=== PATIENT | female | born 1965 | race Hispanic/Latino ===

== ENCOUNTER 2016-05-12 15:32 | Emergency (ER) | payer OTHER ==
[2016-05-12 17:57] LABS: Alanine Aminotransferase 216 units/L (7-56); Albumin 3.9 g/dL (3.9-5); Albumin/Globulin Ratio 1.2 %; Alkaline Phosphatase 101 units/L (35-129); Anion Gap 17 mmol/L; Bilirubin,Total 0.6 mg/dL (0.1-1.2); Blood Urea Nitrogen 14 mg/dL (7-17); Carbon Dioxide 28 mmol/L (22-30); Chloride 101.8 mmol/L (98-107); Glucose 82 mg/dL (65-100); Hemoglobin 14.1 gm/dl (10.1-14.3); Lipase 109 units/L (13-60); Mean Corpuscular HGB Conc 33 % (30-34); Mean Corpuscular Hemoglobin 29 pg (28-32); Mean Corpuscular Volume 88 fl (79-97); Platelet Count 111 K/mm3 (140-440); Potassium 4.1 mmol/L (3.6-5.0); Sodium 143 mmol/L (137-145); Total Protein 7.1 g/dL (6.3-8.2); White Blood Count 5.4 K/mm3 (4.5-11.0)
[2016-05-12 19:11] LABS: Bilirubin,Urine NEG (Negative); Blood,Urine NEG (Negative); Ketones,Urine NEG (Negative); Leukocyte Esterase,Urine NEG (Negative); Mucus,Urine FEW /HPF; Nitrite,Urine NEG (Negative); Protein,Urine <15 mg/dL mg/dL (Negative)
[2016-05-12 19:55] LABS: Blastocytes % (Manual) 0 %
[2016-05-12 19:56] LABS: Anisocytosis 1+; Diff Status Complete; Platelet Estimate Consistent w Auto
[2016-05-12] MEDS ORDERED: NACL 0.9% 500 ML 500 ML ONE (23:25)
[2016-05-12] MEDS ORDERED: NACL 0.9% 500 ML 500 ML IV ONE (23:27)
[2016-05-12] MEDS ORDERED: MORPHINE IV PRN (23:38)
[2016-05-12] MEDS ORDERED: ZOFRAN IV PRN (23:38)
--- NOTE | 2016-05-12 23:44 | Emergency Department Report ---
HPI - General Chief Complaint: Abdominal Pain Time Seen by Provider: 05/12/16 23:25 - HPI HPI: Room 22 The patient is a 50-year-old female presenting with a chief complaint of abdominal pain. The patient states her symptoms began approximately 7 days ago with a "nagging" pain in the right lower quadrant. The patient states over the past 5 days pain has worsened. The patient states it is a dull constant pain that waxes and wanes. Patient denies nausea vomiting or diarrhea. Patient denies fever, dysuria or hematuria. The patient gives her pain a score of 10/ 10. Location: Right lower quadrant Duration: 7 days Quality: Dull Severity: 10/10 Modifying factors: Unknown Context: [see above] Mode of transportation: Patient drove herself to the emergency department and her only other visitor present is a child. The patient states she is calling an adult to come to the ED to drive her and the child home ED Past Medical Hx - Past Medical History Previous Medical History?: Yes Hx Arthritis: Yes Hx Asthma: Yes - Surgical History Past Surgical History?: Yes Hx Cholecystectomy: Yes Additional Surgical History: C-sections x2 - Family History Family history: no significant - Social History Smoking Status: Former Smoker (none 5 years) Substance Use Type: None (denies illicit drug use), Alcohol (none 10 years) - Medications Home Medications: Home Medications Medication Instructions Recorded Confirmed Last Taken Type traMADol [Ultram] 50 mg PO Q6HR PRN #10 tablet 05/13/16 Unknown Rx ED Review of Systems ROS: Stated complaint: RT SIDE PAIN Other details as noted in HPI Comment: All other systems reviewed and negative Constitutional: no symptoms reported Eyes: denies: eye pain, eye discharge, vision change ENT: denies: ear pain, throat pain Respiratory: denies: cough, shortness of breath, wheezing Cardiovascular: denies: chest pain, palpitations Endocrine: no symptoms reported Gastrointestinal: abdominal pain. denies: nausea, diarrhea Genitourinary: denies: urgency, dysuria, discharge Musculoskeletal: denies: back pain, joint swelling, arthralgia Skin: denies: rash, lesions Neurological: denies: headache, weakness, paresthesias Psychiatric: denies: anxiety, depression Hematological/Lymphatic: denies: easy bleeding, easy bruising Physical Exam - Physical Exam Vital Signs: Vital Signs 05/12/16 05/12/16 05/12/16 16:40 23:09 23:38 Temperature 98.2 F 97.6 F Pulse Rate 92 H 71 Respiratory 20 16 18 Rate Blood Pressure 138/91 Blood Pressure 122/70 [Left] O2 Sat by Pulse 97 97 Oximetry Physical Exam: GENERAL: The patient is well-developed well-nourished female lying on stretcher not appearing to be in acute distress. [] HEENT: Normocephalic. Atraumatic. Strabismus. Patient has moist mucous membranes. NECK: Supple. No meningitic signs are noted. There is no adenopathy noted. CHEST/LUNGS: Clear to auscultation. There is no respiratory distress noted. HEART/CARDIOVASCULAR: Regular. There is no tachycardia. There is no gallop rub or murmur. ABDOMEN: Abdomen is soft, with mild discomfort to palpation in the right lower quadrant. There is no tenderness to palpation in the epigastric or right upper quadrant. Patient has normal bowel sounds. There is no abdominal distention. SKIN: There is no rash. There is no edema. There is no diaphoresis. NEURO: The patient is awake, alert, and oriented. The patient is cooperative. The patient has normal speech MUSCULOSKELETAL: There is no CVA tenderness. There is no evidence of acute injury. ED Course Vital Signs 05/12/16 05/12/16 05/12/16 16:40 23:09 23:38 Temperature 98.2 F 97.6 F Pulse Rate 92 H 71 Respiratory 20 16 18 Rate Blood Pressure 138/91 Blood Pressure 122/70 [Left] O2 Sat by Pulse 97 97 Oximetry ED Medical Decision Making - Lab Data Result diagrams: 05/12/16 17:23 05/12/16 17:23 Laboratory Tests 05/12/16 05/12/16 05/12/16 17:23 17:23 18:29 WBC 5.4 RBC 4.90 Hgb 14.1 Hct 43.0 H MCV 88 MCH 29 MCHC 33 RDW 14.0 Plt Count 111 L Add Manual Diff Complete Total Counted 100 Seg Neutrophils % Cra Seg Neuts % (Manual) 35.0 L Band Neutrophils % 0 Lymphocytes % (Manual) 52.0 H Reactive Lymphs % (Man) 0 Monocytes % (Manual) 10.0 H Eosinophils % (Manual) 2.0 Basophils % (Manual) 1.0 Metamyelocytes % 0 Myelocytes % 0 Promyelocytes % 0 Blast Cells % 0 Nucleated RBC % Not Reportable Seg Neutrophils # Man 1.9 Band Neutrophils # 0.0 Lymphocytes # (Manual) 2.8 Abs React Lymphs (Man) 0.0 Monocytes # (Manual) 0.5 Eosinophils # (Manual) 0.1 Basophils # (Manual) 0.1 Metamyelocytes # 0.0 Myelocytes # 0.0 Promyelocytes # 0.0 Blast Cells # 0.0 WBC Morphology Not Reportable Hypersegmented Neuts Not Reportable Hyposegmented Neuts Not Reportable Hypogranular Neuts Not Reportable Smudge Cells Not Reportable Toxic Granulation Not Reportable Toxic Vacuolation Not Reportable Dohle Bodies Not Reportable Pelger-Huet Anomaly Not Reportable Jaimie Rods Not Reportable Platelet Estimate Consistent w auto Clumped Platelets Not Reportable Plt Clumps, EDTA Not Reportable Large Platelets Not Reportable Giant Platelets Not Reportable Platelet Satelliting Not Reportable Plt Morphology Comment Not Reportable RBC Morphology Not Reportable Dimorphic RBCs Not Reportable Polychromasia Not Reportable Hypochromasia Not Reportable Poikilocytosis Not Reportable Anisocytosis 1+ Microcytosis Not Reportable Macrocytosis Not Reportable Spherocytes Not Reportable Pappenheimer Bodies Not Reportable Sickle Cells Not Reportable Target Cells Not Reportable Tear Drop Cells Not Reportable Ovalocytes Not Reportable Helmet Cells Not Reportable [place] Bodies Not Reportable [place] Rings Not Reportable [place] Cells Not Reportable Bite Cells Not Reportable Crenated Cell Not Reportable Elliptocytes Not Reportable Acanthocytes (Spur) Not Reportable Rouleaux Not Reportable Hemoglobin C Crystals Not Reportable Schistocytes Not Reportable Malaria parasites Not Reportable Ted Bodies Not Reportable Hem Pathologist Commnt No Sodium 143 Potassium 4.1 Chloride 101.8 Carbon Dioxide 28 Anion Gap 17 BUN 14 Creatinine 0.8 Estimated GFR > 60 BUN/Creatinine Ratio 17.50 Glucose 82 Calcium 9.0 Total Bilirubin 0.6 AST 248 H ALT 216 H Alkaline Phosphatase 101 Total Protein 7.1 Albumin 3.9 Albumin/Globulin Ratio 1.2 Lipase 109 H Urine Color Yellow Urine Turbidity Clear Urine pH 6.0 Ur Specific [place] 1.021 Urine Protein <15 mg/dl Urine Glucose (UA) Neg Urine Ketones Neg Urine Blood Neg Urine Nitrite Neg Urine Bilirubin Neg Urine Urobilinogen 2.0 Ur Leukocyte Esterase Neg Urine WBC (Auto) 2.0 Urine RBC (Auto) 4.0 U Epithel Cells (Auto) 1.0 Hyaline Casts 1 Urine Mucus Few - Radiology Data Radiology results: report reviewed (CT abdomen and pelvis), image reviewed (CT abdomen and pelvis) CT abdomen and pelvis (read by radiologist)-appendix within normal limits. No significant free peritoneal fluid or apparent adenopathy. Abdominal aorta non- aneurysmal. Findings compatible with fatty infiltration of the liver. Findings suggestive of constipation. - Differential Diagnosis appendicitis, renal colic, ovarian cyst Critical care attestation.: If time is entered above; I have spent that time in minutes in the direct care of this critically ill patient, excluding procedure time. ED Disposition Clinical Impression: Abdominal pain, Elevated LFTs Disposition: DISCHARGED TO HOME OR SELFCARE Is pt being admited?: No Does the pt Need Aspirin: No Condition: Stable Instructions: Abdominal Pain (ED) Additional Instructions: Return to the emergency department immediately should you develop worsening symptoms, fever, inability to tolerate food or liquid or any other concerns. Prescriptions: traMADol [Ultram] 50 mg PO Q6HR PRN #10 tablet PRN Reason: Pain Referrals: PRIMARY CARE, [Primary Care Provider] - 3-5 Days EMILY ABERNATHY MD [Staff Physician] - 3-5 Days (Dr. Abernathy is a inker. Please follow up with him for further evaluation of your elevated liver function test and abdominal pain) SLIME HUERTAS MD [Staff Physician] - 3-5 Days (Dr. Huertas is a rivet hole puncher. Please follow up with him for further evaluation if you do not already have a rivet hole puncher) Time of Disposition: 03:14
[2016-05-13 02:23] VITALS: BP 126/78
--- NOTE | 2016-05-13 02:51 | Cat Scan Report ---
FINAL REPORT EXAM: CT ABDOMEN PELVIS W CON HISTORY: right lower quadrant abdominal pain TECHNIQUE: Spiral CT scanning of the abdomen and pelvis after the uneventful administration of IV contrast. Multiplanar reformations. 100 mL Omnipaque IV. PRIORS: None. FINDINGS: Abdomen: Visualized lung bases grossly unremarkable. Gallbladder surgically absent, with biliary duct prominence probably postsurgical. Liver shows diffusely decreased attenuation without focal abnormality. Spleen without significant abnormality. Pancreas without significant abnormality. Kidneys without significant abnormality. Probable subcentimeter, left renal cyst. Adrenal glands without significant abnormality. Pelvis: Bowel grossly unremarkable, with moderate-large amount of retained stool. Appendix within normal limits. No significant free peritoneal fluid or apparent adenopathy. Abdominal aorta non-aneurysmal. IMPRESSION: 1. Findings compatible with fatty infiltration in the liver. 2. Findings suggestive of constipation.
== END 2016-05-13 04:34 | disposition home or self-care (01) ==
LOC: ED 15:32
DX: R10.31 Right lower quadrant pain (principal); R94.5 Abnormal results of liver function studies; J45.909 Unspecified asthma, uncomplicated; M19.90 Unspecified osteoarthritis, unspecified site; Z87.891 Personal history of nicotine dependence
CPT/HCPCS: 36415; 74177; 80053; 81001; 83690; 85007; 85025; 96374; 96375; 99284; J2270; J2405; J7040; Q9967

== ENCOUNTER 2016-10-07 01:58 | Emergency (ER) | payer OTHER ==
[2016-10-07 03:18] LABS: Bilirubin,Urine NEG (Negative); Blood,Urine NEG (Negative); Ketones,Urine NEG (Negative); Leukocyte Esterase,Urine NEG (Negative); Nitrite,Urine NEG (Negative); Protein,Urine <15 mg/dL mg/dL (Negative)
[2016-10-07 03:24] LABS: Bacteria,Urine 1+ /HPF (Negative)
[2016-10-07 03:34] LABS: Basophils % (Auto) 0.9 % (0.0-1.8); Hematocrit 43.4 % (30.3-42.9); Hemoglobin 14.8 gm/dl (10.1-14.3); Mean Corpuscular HGB Conc 34 % (30-34); Mean Corpuscular Hemoglobin 32 pg (28-32); Mean Corpuscular Volume 93 fl (79-97); Red Blood Count 4.67 M/mm3 (3.65-5.03); Red Cell Distribution Width 13.3 % (13.2-15.2); White Blood Count 5.1 K/mm3 (4.5-11.0)
[2016-10-07 03:35] LABS: Platelet Count 97 K/mm3 (140-440)
[2016-10-07 03:49] LABS: Alanine Aminotransferase 226 units/L (7-56); Albumin 4.1 g/dL (3.9-5); Albumin/Globulin Ratio 1.3 %; Alkaline Phosphatase 104 units/L (35-129); Anion Gap 12 mmol/L; BUN/Creatinine Ratio 18.57; Blood Urea Nitrogen 13 mg/dL (7-17); Calcium 9.3 mg/dL (8.4-10.2); Carbon Dioxide 31 mmol/L (22-30); Chloride 98.4 mmol/L (98-107); Glucose 120 mg/dL (65-100); Lipase 89 units/L (13-60); Potassium 4.2 mmol/L (3.6-5.0); Sodium 137 mmol/L (137-145); Total Protein 7.3 g/dL (6.3-8.2)
[2016-10-07] MEDS ORDERED: SUBLIMAZE IV ONE (08:50)
[2016-10-07] MEDS ORDERED: ZOFRAN IV ONE (08:50)
--- NOTE | 2016-10-07 08:55 | Emergency Department Report ---
HPI - General Chief Complaint: Abdominal Pain Time Seen by Provider: 10/07/16 08:43 - HPI HPI: Room 6 The patient is a 51-year-old female presenting with a chief complaint of abdominal pain. The patient states proximal was 6 weeks ago and diagnosed with an "inflamed pancreas and liver" and "fatty liver." The patient states for the past 4 days she has had intermittent pain in her right abdomen that has been dull in nature. Patient admits to nausea and vomiting. Patient denies diarrhea or fever. The patient currently gives her pain a score of 10/10. 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 Location: Abdomen Duration: 4 days intermittently Quality: Dull Severity: 10/10 Modifying factors: [see above] Context: [see above] Mode of transportation: [not driving] ED Past Medical Hx - Past Medical History Previous Medical History?: Yes Hx Arthritis: Yes Hx Asthma: Yes Additional medical history: "Fatty liver" - Surgical History Past Surgical History?: Yes Hx Cholecystectomy: Yes Additional Surgical History: C-sections x2 - Family History Family history: no significant - Social History Smoking Status: Former Smoker (none 3 years) Substance Use Type: None (denies illicit drug use) - Medications Home Medications: Home Medications Medication Instructions Recorded Confirmed Last Taken Type traMADol [Ultram] 50 mg PO Q6HR PRN #10 tablet 05/13/16 Unknown Rx Promethazine [Phenergan TAB] 25 mg PO Q6HR PRN #20 tab 10/07/16 Unknown Rx Promethazine [Phenergan] 25 mg [place] Q6HR PRN #5 supp.rect 10/07/16 Unknown Rx traMADol [Ultram] 50 mg PO Q6HR PRN #20 tablet 10/07/16 Unknown Rx ED Review of Systems ROS: Stated complaint: ABDOMINAL AND LOWER BACK PAIN Other details as noted in HPI Comment: All other systems reviewed and negative Constitutional: denies: chills, fever Eyes: denies: eye pain, eye discharge, vision change ENT: denies: ear pain, throat pain Respiratory: denies: cough, shortness of breath, wheezing Cardiovascular: denies: chest pain, palpitations Endocrine: no symptoms reported Gastrointestinal: abdominal pain, nausea, vomiting. denies: diarrhea Genitourinary: denies: urgency, dysuria, discharge Musculoskeletal: denies: back pain, joint swelling, arthralgia Skin: denies: rash, lesions Neurological: denies: headache, weakness, paresthesias Psychiatric: denies: anxiety, depression Hematological/Lymphatic: denies: easy bleeding, easy bruising Physical Exam - Physical Exam Vital Signs: Vital Signs 10/07/16 02:07 Temperature 97.6 F Pulse Rate 98 H Respiratory 18 Rate Blood Pressure 128/94 O2 Sat by Pulse 96 Oximetry Physical Exam: GENERAL: The patient is well-developed well-nourished female sleeping on stretcher not appearing to be in acute distress. [] HEENT: Normocephalic. Atraumatic. Extraocular motions are intact. Patient has moist mucous membranes. NECK: Supple. Trachea midline CHEST/LUNGS: Clear to auscultation. There is no respiratory distress noted. HEART/CARDIOVASCULAR: Regular. There is no tachycardia. There is no gallop rub or murmur. ABDOMEN: Abdomen is soft, with mild discomfort to palpation in the left lower quadrant and border of right upper/right lower quadrant. There is no tenderness to palpation in the right upper quadrant, epigastric or left upper quadrant. Patient has normal bowel sounds. There is no abdominal distention. SKIN: There is no rash. There is no edema. There is no diaphoresis. NEURO: The patient is awake, alert, and oriented. The patient is cooperative. The patient has normal speech MUSCULOSKELETAL: There is no evidence of acute injury. ED Course Vital Signs 10/07/16 02:07 Temperature 97.6 F Pulse Rate 98 H Respiratory 18 Rate Blood Pressure 128/94 O2 Sat by Pulse 96 Oximetry ED Medical Decision Making - Lab Data Result diagrams: 10/07/16 03:01 10/07/16 03:01 Laboratory Tests 10/07/16 10/07/16 10/07/16 02:29 03:01 03:01 WBC 5.1 RBC 4.67 Hgb 14.8 H Hct 43.4 H MCV 93 MCH 32 MCHC 34 RDW 13.3 Plt Count 97 L Lymph % (Auto) 41.7 H [place] % (Auto) 6.8 Eos % (Auto) 1.0 Baso % (Auto) 0.9 Lymph # 2.1 [place] # 0.3 Eos # 0.0 Baso # 0.0 Seg Neutrophils % 49.6 Seg Neutrophils # 2.5 Sodium 137 Potassium 4.2 Chloride 98.4 Carbon Dioxide 31 H Anion Gap 12 BUN 13 Creatinine 0.7 Estimated GFR > 60 BUN/Creatinine Ratio 18.57 Glucose 120 H Calcium 9.3 Total Bilirubin 1.40 H AST 278 H ALT 226 H Alkaline Phosphatase 104 Total Protein 7.3 Albumin 4.1 Albumin/Globulin Ratio 1.3 Lipase 89 H HCG, Qual Urine Color Yellow Urine Turbidity Clear Urine pH 5.0 Ur Specific [place] 1.019 Urine Protein <15 mg/dl Urine Glucose (UA) Neg Urine Ketones Neg Urine Blood Neg Urine Nitrite Neg Urine Bilirubin Neg Urine Urobilinogen 2.0 Ur Leukocyte Esterase Neg Urine WBC (Auto) 5.0 Urine RBC (Auto) 2.0 U Epithel Cells (Auto) 15.0 H Urine Bacteria (Auto) 1+ 10/07/16 04:05 WBC RBC Hgb Hct MCV MCH MCHC RDW Plt Count Lymph % (Auto) [place] % (Auto) Eos % (Auto) Baso % (Auto) Lymph # [place] # Eos # Baso # Seg Neutrophils % Seg Neutrophils # Sodium Potassium Chloride Carbon Dioxide Anion Gap BUN Creatinine Estimated GFR BUN/Creatinine Ratio Glucose Calcium Total Bilirubin AST ALT Alkaline Phosphatase Total Protein Albumin Albumin/Globulin Ratio Lipase HCG, Qual Negative Urine Color Urine Turbidity Urine pH Ur Specific [place] Urine Protein Urine Glucose (UA) Urine Ketones Urine Blood Urine Nitrite Urine Bilirubin Urine Urobilinogen Ur Leukocyte Esterase Urine WBC (Auto) Urine RBC (Auto) U Epithel Cells (Auto) Urine Bacteria (Auto) - Radiology Data Radiology results: report reviewed (CT abdomen and pelvis), image reviewed (CT abdomen and pelvis) CT abdomen and pelvis (read by radiologist)-no acute CT abnormality or significant interval change with fatty hepatic infiltration and cholecystectomy. Pancreas, adrenals, nonaneurysmal abdominal aorta with few atherosclerotic calcifications, IVC and kidneys within normal limits. - Differential Diagnosis hepatitis, pancreatitis, malingering Critical care attestation.: If time is entered above; I have spent that time in minutes in the direct care of this critically ill patient, excluding procedure time. ED Disposition Clinical Impression: Elevated LFTs, Abdominal pain Disposition: TO HOME OR SELFCARE Is pt being admited?: No Does the pt Need Aspirin: No Condition: Stable Instructions: Abdominal Pain (ED) Additional Instructions: Return to the emergency department immediately should you develop worsening symptoms, fever, inability to tolerate food or liquid or any other concerns. Prescriptions: Promethazine [Phenergan TAB] 25 mg PO Q6HR PRN #20 tab PRN Reason: Nausea Promethazine [Phenergan] 25 mg [place] Q6HR PRN #5 supp.rect PRN Reason: Vomiting traMADol [Ultram] 50 mg PO Q6HR PRN #20 tablet PRN Reason: Pain Referrals: PRIMARY CARE, [Primary Care Provider] - 3-5 Days MAX KRUEGER MD [Staff Physician] - 3-5 Days [facility], [LAB/CONTRACT] - 3-5 Days Time of Disposition: 11:06
--- NOTE | 2016-10-07 10:52 | Cat Scan Report ---
CT ABDOMEN AND PELVIS WITH CONTRAST INDICATION: Right-sided abdominal pain. COMPARISON: 05/13/2016. FINDINGS: Abdomen and pelvis CT performed following intravenous administration of 100 cc of Omnipaque 300. LUNG BASES: Nonspecific distal esophageal wall prominence/thickening, not excluded for gastroesophageal reflux and/or hiatal hernia, amongst others. ABDOMEN: Stable cholecystectomy clips. Fatty liver may also again be present. Left hepatic lobe extends into the left upper quadrant. Right hepatic lobe 18.8 cm in mid clavicular length. No focal suspicious hepatic or splenic lesions. Pancreas, adrenals, nonaneurysmal abdominal aorta with few atherosclerotic calcifications, IVC and kidneys within normal limits. Couple of indeterminate, 4-5 mm left renal cortical hypodensities. No ascites or size significant adenopathy. Nonopacified GI tract evaluation limited, though grossly nonobstructive. Normal appendix. Usual colonic stool. PELVIS: Urinary bladder, uterus, adnexa/ovaries and rectosigmoid within normal limits. No free fluid or significant adenopathy. Mild multilevel spinal degenerative changes. Mild lumbar levoscoliosis. CONCLUSION: No acute CT abnormality or significant interval change with fatty hepatic infiltration and cholecystectomy, as described. Thank you for the opportunity to participate in this patient's care.
[2016-10-07 11:47] VITALS: BP 132/88
== END 2016-10-07 11:25 | disposition home or self-care (01) ==
LOC: ED 01:58
DX: R10.9 Unspecified abdominal pain (principal); R94.5 Abnormal results of liver function studies; J45.909 Unspecified asthma, uncomplicated; Z87.891 Personal history of nicotine dependence
CPT/HCPCS: 36415; 74177; 80048; 80053; 81001; 83690; 84703; 85025; 96374; 96375; 99284; J2405; J3010; Q9967

== ENCOUNTER 2016-10-26 22:43 | Emergency (ER) | payer OTHER ==
[2016-10-27 00:14] LABS: Eosinophils % (Auto) 1.6 % (0.0-4.3); Hematocrit 45.4 % (30.3-42.9); Hemoglobin 15.5 gm/dl (10.1-14.3); Mean Corpuscular HGB Conc 34 % (30-34); Mean Corpuscular Hemoglobin 32 pg (28-32); Mean Corpuscular Volume 94 fl (79-97); Red Blood Count 4.84 M/mm3 (3.65-5.03); Red Cell Distribution Width 13.7 % (13.2-15.2); White Blood Count 6.2 K/mm3 (4.5-11.0)
[2016-10-27 00:19] LABS: Platelet Count 98 K/mm3 (140-440)
[2016-10-27 00:20] LABS: Alanine Aminotransferase 251 units/L (7-56); Albumin/Globulin Ratio 1.2 %; Alkaline Phosphatase 105 units/L (35-129); BUN/Creatinine Ratio 17.14; Blood Urea Nitrogen 12 mg/dL (7-17); Calcium 9.9 mg/dL (8.4-10.2); Carbon Dioxide 26 mmol/L (22-30); Chloride 100.2 mmol/L (98-107); Glucose 105 mg/dL (65-100); Lipase 104 units/L (13-60); Potassium 5.1 mmol/L (3.6-5.0); Sodium 139 mmol/L (137-145); Total Protein 7.3 g/dL (6.3-8.2)
[2016-10-27 00:21] LABS: Anion Gap 18 mmol/L
[2016-10-27 01:10] LABS: Bilirubin,Urine NEG (Negative); Blood,Urine NEG (Negative); Ketones,Urine NEG (Negative); Leukocyte Esterase,Urine NEG (Negative); Mucus,Urine FEW /HPF; Nitrite,Urine NEG (Negative); Protein,Urine <15 mg/dL mg/dL (Negative); Urobilinogen,Urine < 2.0 mg/dL (<2.0)
--- NOTE | 2016-10-27 07:48 | Emergency Department Report ---
ED Abdominal Pain HPI - General Chief Complaint: Abdominal Pain Stated Complaint: EMESIS/ABD PAIN Time Seen by Provider: 10/27/16 07:42 Source: patient Mode of arrival: Ambulatory Limitations: No Limitations - History of Present Illness Initial Comments: Mrs. Kaba is a 51 years old female coming with his abdominal pain going on for2- 3daysshe was seen here last month for the same complaint and she had a workup including a CT abdomen and pelvis oral come back negative slightly elevated lipase. Patient describes her pain as epigastric pain that radiated to her back denied any diarrhea she had one episode of emesis last night no urinary symptoms MD Complaint: abdominal pain -: Gradual Location: epigastric Severity scale (0 -10): 0 Quality: sharp Improves With: nothing Associated Symptoms: nausea, vomiting. denies: diarrhea - Related Data Previous Rx's Medication Instructions Recorded Last Taken Type traMADol [Ultram] 50 mg PO Q6HR PRN #10 tablet 05/13/16 Unknown Rx Promethazine [Phenergan TAB] 25 mg PO Q6HR PRN #20 tab 10/07/16 Unknown Rx Promethazine [Phenergan] 25 mg [place] Q6HR PRN #5 supp.rect 10/07/16 Unknown Rx traMADol [Ultram] 50 mg PO Q6HR PRN #20 tablet 10/07/16 Unknown Rx Esomeprazole Magnesium [NexIUM] 40 mg PO QDAY #30 capsule.dr 10/27/16 Unknown Rx Ondansetron [Zofran Odt] 4 mg PO Q8HR PRN #14 tab.rapdis 10/27/16 Unknown Rx traMADol [Ultram] 50 mg PO Q6HR PRN #14 tablet 10/27/16 Unknown Rx Allergies Allergy/AdvReac Type Severity Reaction Status Date / Time ketorolac tromethamine AdvReac Unknown Verified 09/25/13 12:14 [From Toradol] ED Review of Systems ROS: Stated complaint: EMESIS/ABD PAIN Other details as noted in HPI Comment: All other systems reviewed and negative Constitutional: denies: chills, fever Respiratory: denies: cough, shortness of breath Cardiovascular: denies: chest pain, palpitations, dyspnea on exertion Gastrointestinal: abdominal pain, nausea, vomiting. denies: diarrhea, constipation, hematemesis, melena, hematochezia Genitourinary: denies: dysuria Musculoskeletal: denies: back pain Neurological: denies: headache, paresthesias ED Past Medical Hx - Past Medical History Hx Arthritis: Yes Hx Asthma: Yes Additional medical history: "Fatty liver" - Surgical History Hx Cholecystectomy: Yes Additional Surgical History: C-sections x2 - Social History Smoking Status: Never Smoker Substance Use Type: None - Medications Home Medications: Home Medications Medication Instructions Recorded Confirmed Last Taken Type traMADol [Ultram] 50 mg PO Q6HR PRN #10 tablet 05/13/16 Unknown Rx Promethazine [Phenergan TAB] 25 mg PO Q6HR PRN #20 tab 10/07/16 Unknown Rx Promethazine [Phenergan] 25 mg [place] Q6HR PRN #5 supp.rect 10/07/16 Unknown Rx traMADol [Ultram] 50 mg PO Q6HR PRN #20 tablet 10/07/16 Unknown Rx Esomeprazole Magnesium [NexIUM] 40 mg PO QDAY #30 capsule.dr 10/27/16 Unknown Rx Ondansetron [Zofran Odt] 4 mg PO Q8HR PRN #14 tab.rapdis 10/27/16 Unknown Rx traMADol [Ultram] 50 mg PO Q6HR PRN #14 tablet 10/27/16 Unknown Rx ED Physical Exam - General Limitations: No Limitations General appearance: alert, in no apparent distress - Eye Eye exam: Present: normal appearance - ENT ENT exam: Present: normal exam - Neck Neck exam: Present: normal inspection - Respiratory Respiratory exam: Present: normal lung sounds bilaterally. Absent: wheezes, rales, chest wall tenderness - Cardiovascular Cardiovascular Exam: Present: regular rate, normal rhythm, normal heart sounds - GI/Abdominal GI/Abdominal exam: Present: soft, tenderness (epigastric). Absent: distended, guarding, rebound, rigid - Extremities Exam Extremities exam: Present: normal inspection - Back Exam Back exam: Present: normal inspection. Absent: full ROM, tenderness, CVA tenderness (R), CVA tenderness (L) - Neurological Exam Neurological exam: Present: alert, oriented X3, CN II-XII intact - Skin Skin exam: Present: warm, intact, normal color ED Course Vital Signs 10/26/16 23:09 Temperature 98.1 F Pulse Rate 85 Respiratory 18 Rate Blood Pressure 149/104 Blood Pressure 149/104 [Left] O2 Sat by Pulse 100 Oximetry ED Medical Decision Making - Lab Data Result diagrams: 10/26/16 23:34 10/26/16 23:34 Critical care attestation.: If time is entered above; I have spent that time in minutes in the direct care of this critically ill patient, excluding procedure time. ED Disposition Clinical Impression: Abdominal pain, Pancreatitis Disposition: DC-01 TO HOME OR SELFCARE Is pt being admited?: No Condition: Stable Instructions: Abdominal Pain (ED), Pancreatitis (ED), Diet for Ulcers and Gastritis (ED) Referrals: PRIMARY CARE, [Primary Care Provider] - 3-5 Days
[2016-10-27] MEDS ORDERED: MORPHINE IM ONE (07:52)
[2016-10-27] MEDS ORDERED: ZOFRAN IM ONE (07:52)
[2016-10-27 08:09] VITALS: BP 132/87
== END 2016-10-27 08:15 | disposition home or self-care (01) ==
LOC: ED 22:43
DX: K85.90 Acute pancreatitis without necrosis or infection, unspecified (principal); J45.909 Unspecified asthma, uncomplicated
CPT/HCPCS: 36415; 80053; 81001; 83690; 85025; 96372; 99283; J2270; J2405